=== PATIENT | female | born 2000 | race Caucasian/White ===

== ENCOUNTER 2022-04-17 07:44 | Inpatient (IN) ==
[2022-04-17] MEDS ORDERED: OXYTOCIN 30 UNITS/500 ML BAG IV PRN (08:27)
[2022-04-17] MEDS ORDERED: LIDOCAINE 1% LOCAL 20 ML VIAL INFIL PRN (08:27)
[2022-04-17 09:00] LABS: Hematocrit (blood only) 31.8 % (34.1-44.9); Hemoglobin 10.7 g/dl (12.0-16.0); Mean Corpuscular Hemoglobin 26.5 pg (25.0-34.0); Mean Corpuscular Hgb Conc 33.6 g/dL (32.0-36.0); Mean Corpuscular Volume 78.7 fL (80.0-100.0); Platelet Count 267 K/uL (130-400); RDW Coefficient of Variation 13.3 % (11.5-14.5); RDW Standard Deviation 38.5 fL (36.4-46.3); Red Blood Count 4.04 M/uL (3.93-5.22); White Blood Count 10.95 K/ul (4.8-10.8)
[2022-04-17] MEDS ORDERED: DINOPROSTONE 10 MG INSERT PV ONE (09:17)
[2022-04-17 09:20] LABS: Alanine Aminotransferase 12 U/L (7-52); Albumin Level 3.3 gm/dl (3.4-5.0); Alkaline Phosphatase 196 U/L (34-104); Anion Gap 8 (3-11); Aspartate Aminotransferase 17 U/L (13-39); BUN Creatinine Ratio 16.3 (10-20); Bilirubin,Total 0.3 mg/dl (0.2-1.0); Blood Urea Nitrogen 8 mg/dl (6-23); Calcium 9.6 mg/dl (8.5-10.1); Carbon Dioxide 24 mmol/L (21-32); Chloride 105 mmol/L (98-107); Creatinine Clr Calc Pharmacy 211.7 ml/min; Est GFR (African American) > 150.0 ml/min; Est GFR (Non-African American) 139.3 ml/min; Globulin 3.4 gm/dl (2.5-4.0); Glucose 97 mg/dl (70-99(Fasting)); Potassium 3.6 mmol/L (3.5-5.1); Sodium 137 mmol/L (136-145); Total Protein 6.7 gm/dl (6.0-8.3); Uric Acid 4.4 mg/dl (2.6-7.2)
--- NOTE | 2022-04-17 09:23 | History & Physical Report ---
Date of Service April 17, 2022 Assessment & Plan (1) Gestational hypertension: Plan: induction of labor Cervidil planned Admission and Anticipated Discharge Date Admission Date: April 17, 2022 History of Present Illness Chief Complaint: induction of labor for hypertension Primary Care Provider: Westley Barrow MD 21 F P0000 at 38.4 admitted to L&D for IOL for gestational hypertension. GBS is positive. 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 Beliefs That Will Affect Care: Rastafari marital status: Single Current Living Situation: Significant Other current occupation: Unemployed Feels Safe at Home: Yes Safety Concerns: Feels Safe At This Time Assistive Devices: None 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 Review of Systems All systems reviewed & are unremarkable except as noted in HPI & below Physical Exam Constitutional: WD/WN, vitals as above Eyes: PERRL, conjunctivae normal, anicteric sclerae Respiratory: normal respiratory effort, lungs clear to auscultation Gastrointestinal (Abdomen): normal bowel sounds, soft, nontender, no hepatosplenomegaly Musculoskeletal: Extremities: extremities normal to inspection Skin: no rashes, warm and dry Neurologic: patellar DTR's 2+ bilat, sensation intact Psychiatric: A+Ox3, euthymic affect Genitourinary: no vaginal lesions, no adnexal mass OB Exam Abdomen: + fundal height and + vertex Manual OB Exam: + cervical dilation 1 cm, + cervical effacement 50% and + station high OB Exam Monitor Tracing: + external FHT monitor used, + external uterine monitor used, + category I and + normal FHT variability Results & Data ([facility]) Vital Signs (Past 12 Hours) Vital Signs Temp Pulse Resp BP 04/17/22 08:12 121 H 04/17/22 08:12 134/72 04/17/22 07:58 36.8 C 125 H 20 140/88 Laboratory Results Laboratory Results - last 24 hr 04/17/22 04/17/22 04/17/22 08:35 08:35 08:40 WBC 10.95 H RBC 4.04 Hgb 10.7 L Hct 31.8 L MCV 78.7 L MCH 26.5 MCHC 33.6 RDW Std Deviation 38.5 RDW Coeff of Christine 13.3 Plt Count 267 MPV 10.0 Sodium 137 Potassium 3.6 Chloride 105 Carbon Dioxide 24 Anion Gap 8 BUN 8 Creatinine 0.49 L Est Cr Clr Drug Dosing 211.7 Est GFR ( Amer) > 150.0 Est GFR (Non-Af Amer) 139.3 BUN/Creatinine Ratio 16.3 Glucose 97 Uric Acid 4.4 Calcium 9.6 Total Bilirubin 0.3 Direct Bilirubin 0.0 AST 17 ALT 12 Alkaline Phosphatase 196 H Lactate Dehydrogenase 177 Total Protein 6.7 Albumin 3.3 L Globulin 3.4 Albumin/Globulin Ratio 1.0 Monitoring External Monitor Cat 1 no ctx
[2022-04-17] MEDS ORDERED: PENICILLIN G POTASSIUM 6 MU in DEXTROSE 5% 250 ML IV ONE (09:30)
[2022-04-17] MEDS ORDERED: Nursing to Pharmacy Communication SCH (09:45)
--- NOTE | 2022-04-17 10:00 | Labor Progress Brief Note ---
Date of Service April 17, 2022 Assessment & Plan Admission and Anticipated Discharge Date Admission Date: April 17, 2022 Physical Exam Genitourinary: Manual OB Exam: + cervical dilation 1 cm, + cervical effacement 50% and + station high OB Exam Monitor Tracing: + external FHT monitor used, + external uterine monitor used, + category I and + normal FHT variability Cervidil 10 mg placed vaginally Results & Data ([facility]) Vital Signs (Past 12 Hours) Vital Signs Temp Pulse Resp BP 04/17/22 08:12 121 H 04/17/22 08:12 134/72 04/17/22 07:58 36.8 C 125 H 20 140/88
[2022-04-17 10:31] LABS: Creatinine Urine Random 77.9 mg/dl; Protein Creatinine Ratio Urine 0.1 (0-0.2); Total Protein Urine Random 10.6 mg/dl (0-11.9)
[2022-04-17] MEDS ORDERED: PENICILLIN G POTASSIUM 3 MU in DEXTROSE 5% 100 ML IV PRN (12:17)
[2022-04-18] MEDS ORDERED: BUTORPHANOL TARTRATE 1 MG/ML VIAL ONE (00:07)
[2022-04-18] MEDS: LACTATED RINGER'S 1,000 ML IV PRN ×3 (00:13→12:45)
[2022-04-18] MEDS: miSOPROStoL 50 MCG TAB PO SCH ×2 (03:34→07:43)
[2022-04-18] MEDS: BUTORPHANOL TARTRATE 1 MG/ML VIAL IV PRN ×2 (03:36→09:52)
[2022-04-18] MEDS ORDERED: ePHEDrine sulfate 50 MG/ML AMP ONE (11:03)
[2022-04-18] MEDS ORDERED: SODIUM CHLORIDE 0.9% INJ 10 ML VIAL ONE (11:04)
[2022-04-18] MEDS ORDERED: fentaNYL citrate 100 MCG/2 ML VIAL ONE (11:04)
[2022-04-18] MEDS ORDERED: BUPIVACAINE 0.25% 30 ML VIAL ONE (11:04)
[2022-04-18] MEDS ORDERED: LIDOCAINE 2%/EPINEPHRINE 1:200,000 20 ML SDV ONE (11:04)
[2022-04-18] MEDS ORDERED: fentaNYL 2MCG/ML ROPIVACAINE 1.25MG/ML 100 ML BAG EPI ONE (11:05)
--- NOTE | 2022-04-18 11:18 | Anesthesiology Consultation ---
Date of Service April 18, 2022 Assessment & Plan Chart Review Chart Review: Acceptable Risk for Surgery and Patient NOT seen in Pre Admission Testing Consults Requested none ASA ASA2 Proposed Anesthesia Anesthesia Type: Labor Epidural and CSE Risk / Benefits Reviewed With: PT / POA / Parent / Guardian, Accepts Plan and Informed Consent Obtained History Height/Weight Height: 5 ft 9 in Weight: 85.275 kg Allergies Allergy/AdvReac Type Severity Reaction Status Date / Time No Known Allergies Allergy Mild Unverified 04/17/22 08:09 Medications Home Medications Medication Instructions Recorded Confirmed Last Taken prenat.vits,marva,bid-tnbq-[id number] 1 tab PO DAILY 04/17/22 04/17/22 04/16/22 12:00 Active Medications Generic Name Dose Route Start Last Admin Trade Name Freq PRN Reason Stop Dose Admin Butorphanol Tartrate 1 mg 04/17/22 23:57 04/18/22 09:52 Butorphanol Tartrate 1 Mg/Ml Vial IV 05/17/22 23:56 1 mg Q2HWA PRN Administration Pain Lactated Ringer's 1,000 mls @ 125 mls/hr 04/17/22 08:27 04/18/22 11:10 Lr IV 04/19/22 08:26 125 mls/hr .Q8H PRN Administration L&D Protocol Protocol Misoprostol 50 mcg 04/17/22 23:59 04/18/22 07:43 Misoprostol 50 Mcg Tab PO 05/17/22 23:58 50 mcg Q4 MIRIAN Administration NPO Date Last Intake of Fluids: 04/18/22 Time Last Intake of Fluids: 10:00 Date Last Intake of Solids: 04/18/22 Time Last Intake of Solids: 00:05 Past Medical History Medical History Generalized anxiety disorder No significant past medical history Exercise / Class Metabolic Activity II 4-5 Yardwork/Stairs/Walk up hill Past Family History Family History Other No significant family history Past Surgical History Surgical History [place] teeth removed Past Anesthesia History No Hx of Anesthesia Complications and No Family Hx of Anesthesia Complications History of PONV No Hx of PONV and No Hx of Motion Sickness Social History Smoking Status: Never smoker Hx Alcohol Use: No Hx Substance Use: No Physical Exam Vital Signs Last Vital Signs Temp 36.8 C 04/18/22 11:07 Pulse 120 H 04/18/22 11:16 Resp 18 04/18/22 07:29 BP 161/109 H 04/18/22 11:16 Constitutional + obese; no acute distress ENMT Mouth: no dentition abnormality Thyromental Distance: < 3.5 Finger Breadths Mallampati Class: II Neck normal visual inspection and trachea midline; neck extension not limited Respiratory normal respiratory effort Auscultation: lungs clear to auscultation bilaterally Cardiovascular Rate/Rhythm: regular rate and regular rhythm Heart Sounds: no murmur Musculoskeletal Spine: normal cervical ROM Extremities: full ROM of extremities Neurologic moves all extremities Motor/Sensory: no sensory deficit Psychiatric Orientation: alert and oriented x 3 Testing Laboratory Results 04/17/22 08:35 04/17/22 08:35
[2022-04-18] MEDS ORDERED: ONDANSETRON INJ 2 MG/ML 2 ML VIAL IV PRN (11:47)
[2022-04-18] MEDS ORDERED: diphenhydrAMINE 50 MG/ML VIAL IV PRN (11:47)
[2022-04-18] MEDS ORDERED: NALOXONE HCL 0.4 MG/1 ML VIAL/CARP IV PRN (11:47)
[2022-04-18] MEDS ORDERED: ePHEDrine sulfate 50 MG/ML AMP IV PRN (11:47)
[2022-04-18] MEDS ORDERED: PROMETHAZINE HCL 25 MG in SODIUM CHLORIDE 0.9% 50 ML IV PRN (11:47)
[2022-04-18] MEDS ORDERED: NALOXONE HCL 1 MG in SODIUM CHLORIDE 0.9% 1000ML 1,000 ML IV PRN (11:47)
[2022-04-18] MEDS ORDERED: NALBUPHINE HCL INJ 10 MG/ML AMP IV PRN (11:47)
[2022-04-18] MEDS ORDERED: fentaNYL 2MCG/ML ROPIVACAINE 1.25MG/ML 100 ML BAG EPI PRN (11:47)
--- NOTE | 2022-04-18 11:53 | Obstetrical Progress Note ---
Date of Service April 18, 2022 Subjective Ambulation: ambulating normally Voiding: no voiding problems Passing Gas:: Yes Diet Tolerance:: regular diet Lochia:: Small Current Pain Level(1-10): 0 doing well Physical Exam Constitutional WD/WN, vitals as above Gastrointestinal (Abdomen) Inspection/Auscultation: abdomen normal to inspection abdomen soft and non-tender fundus firm below U Musculoskeletal Extremities: extremities normal to inspection Skin no rashes, warm and dry Neurologic patellar DTR's 2+ bilat, sensation intact Psychiatric A+Ox3, euthymic affect Results & Data ([facility]) Vital Signs (Past 12 Hours) Vital Signs Temp Pulse Resp BP Pulse Ox 04/18/22 11:49 131 H 112/69 04/18/22 11:48 122 H 100 04/18/22 11:47 109 H 113/71 04/18/22 11:45 113 H 91/50 L 04/18/22 11:44 115 H 102/52 L 04/18/22 11:43 116 H 100 04/18/22 11:42 113 H 104/53 L 04/18/22 11:41 122 H 92/52 L 04/18/22 11:38 110 H 129/75 100 04/18/22 11:35 118 H 131/74 04/18/22 11:33 117 H 99 04/18/22 11:32 112 H 148/77 H 04/18/22 11:28 119 H 100 04/18/22 11:23 117 H 100 04/18/22 11:22 122 H 157/100 H 04/18/22 11:18 120 H 100 04/18/22 11:16 120 H 161/109 H 04/18/22 11:07 36.8 C 04/18/22 10:03 104 H 132/70 04/18/22 07:29 18 04/18/22 07:29 36.9 C 18 04/18/22 07:37 104 H 148/90 H 04/18/22 07:34 113 H 143/94 H 04/18/22 03:06 36.8 C 98 H 18 142/92 H 04/18/22 00:10 36.8 C 103 H 18 141/99 H Laboratory Results Laboratory Results - last 72 hr 04/17/22 04/17/22 04/17/22 08:35 08:35 08:40 WBC 10.95 H RBC 4.04 Hgb 10.7 L Hct 31.8 L MCV 78.7 L MCH 26.5 MCHC 33.6 RDW Std Deviation 38.5 RDW Coeff of Christine 13.3 Plt Count 267 MPV 10.0 Sodium 137 Potassium 3.6 Chloride 105 Carbon Dioxide 24 Anion Gap 8 BUN 8 Creatinine 0.49 L Est Cr Clr Drug Dosing 211.7 Est GFR ( Amer) > 150.0 Est GFR (Non-Af Amer) 139.3 BUN/Creatinine Ratio 16.3 Glucose 97 Uric Acid 4.4 Calcium 9.6 Total Bilirubin 0.3 Direct Bilirubin 0.0 AST 17 ALT 12 Alkaline Phosphatase 196 H Lactate Dehydrogenase 177 Total Protein 6.7 Albumin 3.3 L Globulin 3.4 Albumin/Globulin Ratio 1.0 Ur Random Creatinine U Random Total Protein Protein/Creatinin Ratio 04/17/22 09:55 WBC RBC Hgb Hct MCV MCH MCHC RDW Std Deviation RDW Coeff of Christine Plt Count MPV Sodium Potassium Chloride Carbon Dioxide Anion Gap BUN Creatinine Est Cr Clr Drug Dosing Est GFR ( Amer) Est GFR (Non-Af Amer) BUN/Creatinine Ratio Glucose Uric Acid Calcium Total Bilirubin Direct Bilirubin AST ALT Alkaline Phosphatase Lactate Dehydrogenase Total Protein Albumin Globulin Albumin/Globulin Ratio Ur Random Creatinine 77.9 U Random Total Protein 10.6 Protein/Creatinin Ratio 0.1
--- NOTE | 2022-04-18 11:56 | Communication Note ---
Date of Service: April 18, 2022 Dural covering breached w/ 17 G Tuohy needle , + CSF. Attempts were made to advance epidural catheter, unable 2ndary to resistance.I advnced Cordell and luis ched the Dural covering w/ consequent CSF leak. This was after the intrathecal injection w/ 26G sprotte spinal needle.I moved to lower level L 4-5 and successfully entered the epidural space w/ Tuohy needle and advanced the catheter to 10 cm. I explained to Patient ,RN and Dr Ruiz that the patient may develop a PDPH. I told Patient if this were to occur while she is here ,I would use the epidural cath to give her a blood patch.
--- NOTE | 2022-04-18 14:01 | Delivery Summary ---
Vaginal Delivery Summary Date of Service April 18, 2022 Vaginal Delivery Summary Delivery Note live male DUTCH over intact perineum with delayed cord clamping and Apgars 8/9 weight pending. Cord blood obtained followed by spontaneous delivery of intact placenta. No tears. Final sponge and instrument count are correct. EBL 150 ml. Mom and baby stable.
[2022-04-18] MEDS ORDERED: ACETAMINOPHEN 325 MG TAB PO PRN (14:35)
[2022-04-18] MEDS ORDERED: HYDROCORTISONE ACETATE 25 MG SUPP PR PRN (14:35)
[2022-04-18] MEDS ORDERED: bisacodyL 10 MG SUPP PR PRN (14:35)
[2022-04-18] MEDS ORDERED: BENZOCAINE 20% AER SPR 82.5 GM CAN EXT PRN (14:35)
[2022-04-18] MEDS ORDERED: OXYTOCIN 30 UNITS/500 ML BAG IV PRN (14:35)
[2022-04-18] MEDS ORDERED: DIPHTHERIA/TETANUS/PERTUSSIS 0.5 ML SYR/VIAL IM ONE (14:35)
[2022-04-18] MEDS: DOCUSATE SODIUM 100 MG CAP PO SCH (20:46)
[2022-04-18] MEDS: IBUPROFEN 600 MG TAB PO PRN (20:49)
[2022-04-19 06:43] LABS: Hematocrit (blood only) 29.8 % (34.1-44.9); Hemoglobin 9.8 g/dl (12.0-16.0); Mean Corpuscular Hgb Conc 32.9 g/dL (32.0-36.0); Platelet Count 243 K/uL (130-400); RDW Coefficient of Variation 13.7 % (11.5-14.5); Red Blood Count 3.77 M/uL (3.93-5.22); White Blood Count 12.39 K/ul (4.8-10.8)
--- NOTE | 2022-04-19 08:32 | Obstetrical Progress Note ---
Date of Service April 19, 2022 Subjective Ambulation: ambulating normally Voiding: no voiding problems Passing Gas:: Yes Diet Tolerance:: regular diet Feeding Type:: breast feeding Current Pain Level(1-10): 0 doing well. no headaches or visual changes Physical Exam Gastrointestinal (Abdomen) Inspection/Auscultation: abdomen normal to inspection abdomen soft and non-tender. fundus firm Musculoskeletal Extremities: extremities normal to inspection Skin no rashes, warm and dry Neurologic patellar DTR's 2+ bilat, sensation intact Results & Data ([facility]) Vital Signs (Past 12 Hours) Vital Signs Temp Pulse Resp BP Pulse Ox O2 Del Method 04/19/22 04:05 36.4 C L 98 H 18 125/80 97 Room Air 04/18/22 23:30 36.6 C 102 H 18 132/82 98 Room Air Laboratory Results 04/17/22 04/17/22 04/17/22 08:35 08:35 08:40 WBC 10.95 H RBC 4.04 Hgb 10.7 L Hct 31.8 L MCV 78.7 L MCH 26.5 MCHC 33.6 RDW Std Deviation 38.5 RDW Coeff of Christine 13.3 Plt Count 267 MPV 10.0 Sodium 137 Potassium 3.6 Chloride 105 Carbon Dioxide 24 Anion Gap 8 BUN 8 Creatinine 0.49 L Est Cr Clr Drug Dosing 211.7 Est GFR ( Amer) > 150.0 Est GFR (Non-Af Amer) 139.3 BUN/Creatinine Ratio 16.3 Glucose 97 Uric Acid 4.4 Calcium 9.6 Total Bilirubin 0.3 Direct Bilirubin 0.0 AST 17 ALT 12 Alkaline Phosphatase 196 H Lactate Dehydrogenase 177 Total Protein 6.7 Albumin 3.3 L Globulin 3.4 Albumin/Globulin Ratio 1.0 Ur Random Creatinine U Random Total Protein Protein/Creatinin Ratio 04/17/22 04/19/22 09:55 06:24 WBC 12.39 H RBC 3.77 L Hgb 9.8 L Hct 29.8 L MCV 79.0 L MCH 26.0 MCHC 32.9 RDW Std Deviation 39.0 RDW Coeff of Christine 13.7 Plt Count 243 MPV 10.0 Sodium Potassium Chloride Carbon Dioxide Anion Gap BUN Creatinine Est Cr Clr Drug Dosing Est GFR ( Amer) Est GFR (Non-Af Amer) BUN/Creatinine Ratio Glucose Uric Acid Calcium Total Bilirubin Direct Bilirubin AST ALT Alkaline Phosphatase Lactate Dehydrogenase Total Protein Albumin Globulin Albumin/Globulin Ratio Ur Random Creatinine 77.9 U Random Total Protein 10.6 Protein/Creatinin Ratio 0.1
--- NOTE | 2022-04-19 09:02 | Anesthesia Procedure Note ---
Date of Service April 19, 2022 Anesthesia Post Epidural Note Vital Signs Vital Signs: Temp Pulse Resp BP Pulse Ox O2 Del Method 36.4 C L 98 H 18 125/80 97 04/19/22 04:05 04/19/22 04:05 04/19/22 04:05 04/19/22 04:05 04/19/22 04:05 04/19/22 04:05 Pain Intensity Back: Pain Intensity: 1 Notes Mental Status: alert / awake / arousable Nausea / Vomiting: adequately controlled Pain: adequately controlled Airway Patency, RR, SpO2: stable & adequate BP & HR: stable & adequate Hydration State: stable & adequate Neuraxial Anesthesia: was administered and sensory block is resolving Anesthetic Complications: no major complications apparent Epidural: Removed without complications and With tip intact
--- NOTE | 2022-04-19 09:03 | Communication Note ---
Date of Service: April 19, 2022 Patient has been up and ambulating. Patient has no c/o H/A's. Epidural catheter removed w/ tip intact.
[2022-04-19] MEDS: DOCUSATE SODIUM 100 MG CAP PO SCH ×2 (09:45→21:02)
[2022-04-19] MEDS: PRENATAL VITAMIN 1 TAB PO SCH ×2 (09:46)
[2022-04-19] MEDS: IBUPROFEN 600 MG TAB PO PRN ×2 (09:46→21:01)
[2022-04-19] MEDS: FERROUS SULFATE 325 MG TAB PO SCH (09:51)
[2022-04-19] MEDS ORDERED: bisacodyL 5 MG TABEC PO SCH (20:00)
[2022-04-20 06:28] LABS: Hematocrit (blood only) 32.3 % (34.1-44.9); Hemoglobin 10.6 g/dl (12.0-16.0)
[2022-04-20] MEDS: FERROUS SULFATE 325 MG TAB PO SCH (07:44)
[2022-04-20] MEDS: PRENATAL VITAMIN 1 TAB PO SCH ×2 (07:44→10:21)
[2022-04-20] MEDS: DOCUSATE SODIUM 100 MG CAP PO SCH (07:44)
[2022-04-20] MEDS: IBUPROFEN 600 MG TAB PO PRN (07:44)
--- NOTE | 2022-04-20 09:59 | Obstetrical Progress Note ---
Date of Service April 20, 2022 Assessment & Plan (1) Normal course: PPD #2 pt doing well d/c home with instructions Subjective Ambulation: ambulating normally Voiding: no voiding problems Passing Gas:: Yes Diet Tolerance:: regular diet Lochia:: Small Feeding Type:: breast feeding Review of Systems All systems reviewed & are unremarkable except as noted in HPI & below Physical Exam Constitutional WD/WN, vitals as above well developed and well nourished Eyes PERRL, conjunctivae normal, anicteric sclerae Neck trachea midline, no thyromegaly Respiratory normal respiratory effort, lungs clear to auscultation Auscultation: no crackles, no rales and no wheezes Cardiovascular RRR, no murmur, no edema Gastrointestinal (Abdomen) normal bowel sounds, soft, nontender, no hepatosplenomegaly Uterus is below umbilicus Musculoskeletal no cyanosis or clubbing, extremities motor strength 5/5 Skin no rashes, warm and dry Neurologic patellar DTR's 2+ bilat, sensation intact Psychiatric A+Ox3, euthymic affect Genitourinary normal external appearance Results & Data ([facility]) Vital Signs (Past 12 Hours) Vital Signs Temp Pulse Resp BP Pulse Ox O2 Del Method 04/20/22 00:05 36.6 C 92 H 16 125/80 98 Room Air
== END 2022-04-20 11:25 | disposition home or self-care (01) | DRG 807 ==
LOC: 4S1 07:44 → 4E2 04-18 17:07

== ENCOUNTER 2025-02-14 14:55 | Inpatient (IN) ==
[2025-02-14] MEDS: LABETALOL HCL 100 MG TAB PO ONE (16:31)
[2025-02-14 17:01] LABS: Hematocrit (blood only) 34.6 % (37.0-47.0); Hemoglobin 11.7 g/dl (12.0-16.0); Immature Granulocytes # (auto) 0.14 K/uL (0.01-0.20); Immature Granulocytes % (auto) 1.1 %; Mean Corpuscular Hemoglobin 26.4 pg (25.0-34.0); Mean Corpuscular Volume 77.9 fL (80.0-100.0); Platelet Count 267 K/uL (130-400); RDW Standard Deviation 37.7 fL (36.4-46.3); Red Blood Count 4.44 M/uL (4.20-5.40); White Blood Count 12.29 K/ul (4.8-10.8)
[2025-02-14] MEDS ORDERED: LIDOCAINE 1% LOCAL 20 ML VIAL INFIL PRN (17:08)
[2025-02-14] MEDS ORDERED: CALCIUM CARBONATE 500 MG CHEWABLE TAB PO PRN (17:08)
[2025-02-14] MEDS ORDERED: OXYTOCIN 30 UNITS/NSS 30 UNITS/500 ML BAG IV PRN (17:08)
[2025-02-14 17:17] LABS: Alanine Aminotransferase 8.0 U/L (7-52); Albumin Globulin Ratio 1.0 (0.9-2); Alkaline Phosphatase 126.0 U/L (34-104); Anion Gap 10.0 (3-11); Bilirubin,Total 0.1 mg/dl (0.2-1.0); Blood Urea Nitrogen 9.0 mg/dl (6-23); Calcium 9.0 mg/dl (8.6-10.3); Carbon Dioxide 19.0 mmol/L (21-32); Chloride 108.0 mmol/L (98-107); Creatinine Clr Calc Pharmacy 230.8 ml/min; Globulin 3.2 gm/dl (2.5-4.0); Glucose 102.0 mg/dl (70-99(Fasting)); Potassium 3.5 mmol/L (3.5-5.1); Sodium 137.0 mmol/L (136-145); Total Protein 6.5 gm/dl (6.0-8.3); Uric Acid 4.6 mg/dl (2.6-7.2)
[2025-02-14 17:36] LABS: INR 0.9 (0.9-1.1); Partial Thromboplastin Time 25 Seconds (21-31); Prothrombin Time 9.6 Seconds (9.0-12.0)
[2025-02-14] MEDS: DINOPROSTONE 10 MG INSERT PV ONE (17:50)
[2025-02-14 18:01] LABS: Protein Creatinine Ratio Urine 0.2 (0-0.2); Total Protein Urine Random 18.0 mg/dl (0-11.9)
--- NOTE | 2025-02-14 18:10 | History & Physical Report ---
Date of Service February 14, 2025 Assessment & Plan (1) Chronic hypertension in obstetric context in third trimester: Plan: induction of labor planned Cervical ripening with Cervidil (2) Intrauterine growth restriction (IUGR) affecting care of mother, third tr imester, single gestation: Plan: IOL History of Present Illness Chief Complaint: elevated BP in office Primary Care Provider: Janes Montoya 24 F P1001 at 38.3 weeks with chronic hypertension and IUGR noted to have elevated BP in the office today. Patient has not taken her morning Labetalol dose and has not been compliant with her meds or her care. She refused f/u MFM consult. GBS is negative. She had elevated BP in her first . She denies headaches, visual changes, swelling in her extremities or face. Allergies Allergy/AdvReac Type Severity Reaction Status Date / Time No Known Allergies Allergy Mild Unverified 04/23/22 08:46 Home Medications Medication Instructions Recorded Confirmed Type prenat.vits,marva,tha-yqrx-txsbk 1 tab PO DAILY 04/17/22 02/14/25 History labetalol 100 mg tablet 100 mg PO BID 02/14/25 02/14/25 History Patient History Medical History Generalized anxiety disorder No significant past medical history Surgical History [place] teeth removed Family History Other No significant family history Social History Smoking Status: Never smoker Second Hand Exposure: No; Do You Dip or Chew Tobacco: No; Hx Alcohol Use: No Hx Substance Use: No Preferred Language: [place] 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 Review of Systems All systems reviewed & are unremarkable except as noted in HPI & below Physical Exam Constitutional: WD/WN, vitals as above Eyes: PERRL, conjunctivae normal, anicteric sclerae Respiratory: normal respiratory effort Cardiovascular: Rate/Rhythm: regular rate and regular rhythm Gastrointestinal (Abdomen): Inspection/Auscultation: abdomen normal to inspection Musculoskeletal: Extremities: extremities normal to inspection Skin: no rashes, warm and dry Neurologic: patellar DTR's 2+ bilat, sensation intact Psychiatric: A+Ox3, euthymic affect Genitourinary: no vaginal lesions, no adnexal mass Manual OB Exam: + cervical dilation fingertip, + cervical effacement 50% and + station high OB Exam Monitor Tracing: + external FHT monitor used, + external uterine monitor used, + category I and + normal FHT variability Cervidil 10 mg placed vaginally Results & Data Vital Signs (Past 12 Hours) Vital Signs Temp Pulse Resp BP 02/14/25 17:53 101 H 141/90 H 02/14/25 17:29 18 02/14/25 17:29 18 02/14/25 17:21 104 H 156/100 H 02/14/25 17:00 18 02/14/25 17:00 18 02/14/25 16:33 104 H 153/95 H 02/14/25 16:30 18 02/14/25 16:30 18 02/14/25 15:47 18 02/14/25 15:47 18 02/14/25 15:42 112 H 162/102 H 02/14/25 15:30 18 02/14/25 15:30 36.8 C 18 02/14/25 15:25 36.8 C 18 02/14/25 15:17 113 H 152/100 H 02/14/25 15:11 111 H 151/96 H Laboratory Results 02/14/25 02/14/25 02/14/25 16:01 16:45 17:08 WBC 12.29 H RBC 4.44 Hgb 11.7 L Hct 34.6 L MCV 77.9 L MCH 26.4 MCHC 33.8 RDW Std Deviation 37.7 RDW Coeff of Christine 13.3 Plt Count 267 MPV 10.0 Immature Gran % (Auto) 1.1 Neut % (Auto) 73.5 Lymph % (Auto) 11.9 [place] % (Auto) 12.8 Eos % (Auto) 0.5 Baso % (Auto) 0.2 Neut # (Auto) 9.03 H Lymph # (Auto) 1.46 [place] # (Auto) 1.57 H Eos # (Auto) 0.06 Baso # (Auto) 0.03 Immature Gran # (Auto) 0.14 PT 9.6 INR 0.9 APTT 25 PTT Ratio 0.9 Sodium 137 Potassium 3.5 Chloride 108 H Carbon Dioxide 19 L Anion Gap 10 BUN 9 Creatinine 0.45 L Est Cr Clr Drug Dosing 230.8 eGFR 137.69 BUN/Creatinine Ratio 20.0 Glucose 102 H Uric Acid 4.6 Calcium 9.0 Total Bilirubin 0.1 L AST 14 ALT 8 Alkaline Phosphatase 126 H Total Protein 6.5 Albumin 3.3 L Globulin 3.2 Albumin/Globulin Ratio 1.0 Ur Random Creatinine 85.0 U Random Total Protein 18.0 H Protein/Creatinin Ratio 0.2 Treponema pallidum Ab Negative Monitoring External Monitor Cat 1
[2025-02-14] MEDS: LABETALOL HCL 100 MG TAB PO SCH (21:00)
[2025-02-14] MEDS: CETIRIZINE HCL 10 MG TABLET PO PRN (22:22)
--- NOTE | 2025-02-15 09:26 | Obstetrical Progress Note ---
Date of Service February 15, 2025 Assessment & Plan Admission and Anticipated Discharge Date Admission Date: February 14, 2025 Subjective Patient is seen and examined. She was admitted yesterday by Dr. Ruiz for induction for chronic hypertension during , elevated blood pressures, growth restriction, AC at 4 percentile, The previous study of 08/07/2024 estimated the date of delivery of 02/24/2025. Utilizing that date, current gestational age is 36 weeks 6 days. Biparietal diameter: 8.6 cm, 34w 5d, 12th percentile Head circumference: 31.7 cm, 35w 4d, 6th percentile Abdominal circumference: 30.1 cm, 34w 0d, 4th percentile Femur length: 7.1 cm, 36w 2d, 33rd percentile Humeral length: 6.3 cm, 36w 4d, 69th percentile HC/AC: 1.05, within normal limits EFW: 2547 g +/-372 g which is the 13th percentile. IMPRESSION IMPRESSION 1. Findings concerning for FGR. 2. Normal ERIC 3. Vertex presentation. patient has received Cervidil for cervical ripening which was removed this morning. She has been feeling irregular contractions but they are not very painful yet. She denies leakage of fluid or vaginal bleeding. She reports good movements. She denies headaches, change in her vision, nausea vomiting, epigastric or right upper quadrant pain. Her labs were within normal limits yesterday. GBS negative. She denies Any other medical problems, denies any history of STDs including chlamydia, gonorrhea, herpes, denies smoking alcohol or drug use. her cervix is 2 to 3 cm, 50% effaced, head is -2 station, heart rate category 1, [place] shows: Contractions every 2 to 3 minutes, Plan to continue to monitor closely and start oxytocin per protocol, All questions were answered. Results & Data Vital Signs (Past 12 Hours) Vital Signs Temp Pulse Resp BP 02/15/25 09:12 96 H 134/87 02/15/25 07:05 85 131/87 02/15/25 07:03 16 02/15/25 07:03 36.9 C 02/15/25 06:33 91 H 139/92 02/15/25 04:09 16 02/15/25 04:09 36.7 C 02/15/25 03:45 78 122/81 07/31/25 02:01 76 139/90 02/15/25 00:02 85 141/92 H 02/15/25 00:01 16 02/15/25 00:01 36.7 C 16 02/14/25 22:02 85 141/91 H
[2025-02-15] MEDS: LACTATED RINGER'S 1,000 ML IV PRN ×2 (10:26→15:28)
[2025-02-15] MEDS: OXYTOCIN 30 UNITS/NSS 30 UNITS/500 ML BAG IV PRN (10:32)
[2025-02-15] MEDS: BUTORPHANOL TARTRATE 1 MG/ML VIAL IV PRN (12:01)
[2025-02-15] MEDS: BUTORPHANOL TARTRATE 1 MG/ML VIAL IV ONE (12:53)
--- NOTE | 2025-02-15 14:52 | Anesthesiology Consultation ---
Date of Service February 15, 2025 Assessment & Plan (1) Encounter for pre-operative examination: Chart Review Chart Review: Acceptable Risk for Labor Epidural History Height/Weight Height: 5 ft 9 in Weight: 90.265 kg Allergies Allergy/AdvReac Type Severity Reaction Status Date / Time No Known Allergies Allergy Mild Unverified 04/23/22 08:46 Medications Home Medications Medication Instructions Recorded Confirmed Last Taken prenat.vits,marva,xxn-dmun-[id number] 1 tab PO DAILY 04/17/22 02/14/25 02/13/25 labetalol 100 mg tablet 100 mg PO BID 02/14/25 02/14/25 02/13/25 Active Medications Generic Name Dose Route Start Last Admin Trade Name Freq PRN Reason Stop Dose Admin Butorphanol Tartrate 1 mg 02/14/25 18:00 02/15/25 12:01 Butorphanol Tartrate 1 Mg/Ml Vial IV 03/16/25 17:59 1 mg Q2HWA PRN Administration Pain Cetirizine HCl 10 mg 02/14/25 21:15 02/14/25 22:22 Cetirizine Hcl 10 Mg Tablet PO 02/17/25 21:14 10 mg DAILY PRN Administration Congestion Lactated Ringer's 1,000 mls @ 125 mls/hr 02/14/25 17:08 02/15/25 10:26 Lr IV 02/16/25 17:07 125 mls/hr .Q8H PRN Administration L&D Protocol Protocol Oxytocin 30 units in 500 mls @ 12 mls/hr 02/15/25 09:17 02/15/25 14:00 Pitocin 30 Units/Nss IV 02/17/25 09:16 0.72 units/hr .Q24H PRN 12 mls/hr Labor Induction/Augmentation Titration Protocol 0.72 UNITS/HR Labetalol HCl 100 mg 02/14/25 21:00 02/15/25 09:12 Labetalol Hcl 100 Mg Tab PO 03/16/25 20:59 100 mg BID MIRIAN Administration Past Medical History Medical History Generalized anxiety disorder No significant past medical history Past Family History Family History Other No significant family history Past Surgical History Surgical History [place] teeth removed Social History Smoking Status: Never smoker Do You Dip or Chew Tobacco: No Hx Alcohol Use: No Hx Substance Use: No Physical Exam Vital Signs Last Vital Signs Temp 37.1 C 02/15/25 11:58 Pulse 96 H 02/15/25 14:02 Resp 20 02/15/25 10:09 BP 135/76 02/15/25 14:02 Testing Laboratory Results 02/14/25 16:45 02/14/25 16:45 PT 9.6 Seconds (9.0-12.0) 02/14/25 16:45 INR 0.9 (0.9-1.1) 02/14/25 16:45 APTT 25 Seconds (21-31) 02/14/25 16:45
[2025-02-15] MEDS: LIDOCAINE 2%/EPINEPHRINE 1:200,000 20 ML PF ONE (15:20)
[2025-02-15] MEDS: BUPIVACAINE 0.25% PF 30 ML VIAL ONE (15:20)
[2025-02-15] MEDS: fentANYL 2 MCG/ML BUPIVacaine 0.125%-NSS 100ML BAG ONE (15:21)
[2025-02-15] MEDS ORDERED: NALOXONE HCL 0.4 MG/1 ML VIAL/CARP IV PRN (15:27)
[2025-02-15] MEDS ORDERED: LIDOCAINE 2% MPF LOCAL 5 ML VIAL EPI PRN (15:27)
[2025-02-15] MEDS ORDERED: BUPIVACAINE 0.25% PF 30 ML VIAL EPI PRN (15:27)
[2025-02-15] MEDS ORDERED: ONDANSETRON INJ 2 MG/ML 2 ML VIAL IV PRN (15:27)
[2025-02-15] MEDS ORDERED: NALOXONE HCL 1 MG in SODIUM CHLORIDE 0.9% 1,000 ML IV PRN (15:27)
[2025-02-15] MEDS ORDERED: SODIUM CHLORIDE 0.9% PF INJ 10 ML VIAL EPI PRN (15:27)
[2025-02-15] MEDS ORDERED: fentANYL 2 MCG/ML BUPIVacaine 0.125%-NSS 100ML BAG EPI PRN (15:27)
[2025-02-15] MEDS ORDERED: ROPIVACAINE 0.5% PF 5 MG/ML 20 ML VIAL EPI PRN (15:27)
[2025-02-15] MEDS ORDERED: OXYTOCIN 30 UNITS/NSS 30 UNITS/500 ML BAG IV PRN (16:19)
[2025-02-15] MEDS ORDERED: BENZOCAINE 20% SPRY 85 APPLN/85 GM CAN EXT PRN (16:19)
[2025-02-15] MEDS ORDERED: HYDROCORTISONE ACETATE 25 MG SUPP PR PRN (16:19)
[2025-02-15] MEDS ORDERED: ACETAMINOPHEN 325 MG TAB PO PRN (16:19)
--- NOTE | 2025-02-15 16:21 | Delivery Summary ---
Vaginal Delivery Summary Date of Service February 15, 2025 Vaginal Delivery Summary Patient was found to be fully dilated and desires to push. She pushed once min and delivered the head and then shoulders with minimal traction. The baby was handed off to the mother. The cord was clampedx2 and cut at 1 minute. The vagina and perineum were checked and found to be intact, no laceration. R The placenta was delivered spontaneously as intact and complete. The uterus was explored and found to be empty. QBL was 243 ml. The fundus was firm The baby was a viable male , Apgars 8/8, the weight is pending The mother and the baby tolerated the procedure well. No complications happened and I was present during whole procedure.
[2025-02-15] MEDS: SODIUM CHLORIDE 0.9% PF INJ 10 ML VIAL ONE (18:39)
[2025-02-15] MEDS: BUPIVACAINE 0.25% PF 30 ML VIAL EPI STA (18:39)
[2025-02-15] MEDS: DIPHTHER/TETAN/PERTUS Vaccine (Tdap, Adol/Adult) 0.5mL IM ONE (18:40)
[2025-02-15] MEDS: SODIUM CHLORIDE 0.9% PF INJ 10 ML VIAL EPI STA (18:40)
[2025-02-15] MEDS: LIDOCAINE 2%/EPINEPHRINE 1:200,000 20 ML PF EPI STA (18:40)
[2025-02-15] MEDS: DOCUSATE SODIUM 100 MG CAP PO SCH (20:46)
[2025-02-15] MEDS: IBUPROFEN 600 MG TAB PO PRN (20:46)
[2025-02-16] MEDS: ACETAMINOPHEN 325 MG TAB PO PRN (01:00)
[2025-02-16 07:13] LABS: Hematocrit (blood only) 31.0 % (37.0-47.0); Hemoglobin 10.1 g/dl (12.0-16.0); Mean Corpuscular Hemoglobin 25.9 pg (25.0-34.0); Mean Corpuscular Volume 79.5 fL (80.0-100.0); Platelet Count 199 K/uL (130-400); RDW Standard Deviation 39.2 fL (36.4-46.3); Red Blood Count 3.90 M/uL (4.20-5.40); White Blood Count 11.25 K/ul (4.8-10.8)
[2025-02-16] MEDS: MEASLES, MUMPS & RUBELLA VIRUS VACCINE (MMR) 0.5ML VIAL SQ ONE (07:46)
[2025-02-16] MEDS: PRENATAL VITAMIN 1 TAB PO SCH (07:52)
[2025-02-16] MEDS: FERROUS SULFATE 325 MG TAB PO SCH (07:52)
[2025-02-16 07:56] VITALS: RESP 18
--- NOTE | 2025-02-16 08:50 | Obstetrical Progress Note ---
Date of Service February 16, 2025 Assessment & Plan (1) Normal course: Present on Admission?: No Plan s/p PPD #1 Pt clinically and hemodynamically stable routine care regular diet discharge plan for tomorrow Subjective Ambulation: ambulating normally Passing Gas:: Yes Diet Tolerance:: regular diet Review of Systems All systems reviewed & are unremarkable except as noted in HPI & below Constitutional: + as per Subjective / HPI Respiratory: + as per Subjective / HPI Cardiovascular: + as per Subjective / HPI Gastrointestinal: + as per Subjective / HPI Physical Exam Constitutional WD/WN, vitals as above Genitourinary deferred Results & Data Vital Signs (Past 12 Hours) Vital Signs Temp Pulse Resp BP Pulse Ox O2 Del Method 02/16/25 07:55 36.5 C 90 18 128/87 99 Room Air 02/16/25 03:40 36.5 C 89 16 126/84 99 Room Air 02/16/25 00:40 36.9 C 92 H 20 123/74 99 Room Air
--- NOTE | 2025-02-16 12:25 | Discharge Summary ---
Date of Service February 16, 2025 Admission HPI Per Admitting Provider 24 F P1001 at 38.3 weeks with chronic hypertension and IUGR noted to have elevated BP in the office today. Patient has not taken her morning Labetalol dose and has not been compliant with her meds or her care. She refused f/u MFM consult. GBS is negative. She had elevated BP in her first . She denies headaches, visual changes, swelling in her extremities or face. Admission Exam (Per Admitting) Constitutional WD/WN, vitals as above Respiratory normal respiratory effort, lungs clear to auscultation Cardiovascular RRR, no murmur, no edema Gastrointestinal (Abdomen) normal bowel sounds, soft, nontender, no hepatosplenomegaly Discharge Data Consultations 02/14/25 17:08 Consult Anesthesiology Stat Hospital Course (1) Normal course: (2) Vaginal delivery: (3) Gestational hypertension: Plan discharge home discussed contraception instructions reviewed follow up in the office in 3 weeks and 6 weeks for visit continue labetalol until further appt
[2025-02-16 12:52] VITALS: BP 136/83; PULSE 105; TEMP 98.4; O2SAT 97
== END 2025-02-16 17:25 | disposition home or self-care (01) | DRG 807 ==
LOC: OPB 14:55 → 4S1 15:07 → 4E2 02-15 20:17